=== PATIENT | female | born 1985 | race Caucasian/White ===

== ENCOUNTER 2017-06-14 02:23 | Emergency (ER) | payer BC, OTHER ==
[2017-06-14 02:38] VITALS: BMI 23.2
[2017-06-14 02:41] VITALS: BP 106/71; PULSE 106; RESP 18; TEMP 99; O2SAT 97
--- NOTE | 2017-06-14 02:55 | ED PDOC ---
Arrival/HPI - General Chief Complaint: Flu-like Symptoms Time Seen by Provider: 06/14/17 02:48 Historian: Patient - History of Present Illness Narrative History of Present Illness (Text): 06/14/17 02:53 Pt. to ED no significant PMHX with c/o flu like symptoms past 2 days. C/o dry cough, subjective fever, occasional chills. No vomiting or diarrhea.No chest pain or sob. Past Medical History - Provider Review Nursing Documentation Reviewed: Yes - Travel History Have you recently traveled outside [place] w/in the past 3 mons?: No - Psychiatric Hx Substance Use: No - Surgical History Other/Comment: laproscopy - Anesthesia Hx Anesthesia: No Family/Social History - Physician Review Nursing Documentation Reviewed: Yes Family/Social History: No Known Family HX Smoking Status: Never Smoked Hx Alcohol Use: No Hx Substance Use: No Allergies/Home Meds Allergies/Adverse Reactions: Allergies No Known Allergies Allergy (Verified 06/14/17 02:38) Review of Systems - Physician Review All systems were reviewed & negative as marked: Yes - Review of Systems Constitutional: Fevers, Other (Chills) Eyes: Normal ENT: Normal Respiratory: Cough Cardiovascular: Normal Gastrointestinal: Normal Genitourinary Female: Normal Musculoskeletal: Normal Skin: Normal Neurological: Normal Endocrine: Normal Hemo/Lymphatic: Normal Psychiatric: Normal Physical Exam Vital Signs Reviewed: Yes Vital Signs Temp Pulse Resp BP Pulse Ox 06/14/17 02:41 99.0 F 106 H 18 106/71 97 06/14/17 02:38 99.0 F 106 H 18 106/71 97 Temperature: Afebrile Blood Pressure: Normal Pulse: Regular Respiratory Rate: Normal Appearance: Positive for: Well-Appearing, Non-Toxic, Comfortable Pain Distress: None Mental Status: Positive for: Alert and Oriented X 3 - Systems Exam Head: Present: Atraumatic, Normocephalic Pupils: Present: PERRL Extroacular Muscles: Present: EOMI Conjunctiva: Present: Normal Mouth: Present: Moist Mucous Membranes Pharnyx: Present: Normal Nose (Internal): Present: Rhinorrhea Neck: Present: Normal Range of Motion. No: Meningeal Signs Respiratory/Chest: Present: Clear to Auscultation, Good Air Exchange. No: Respiratory Distress, Accessory Muscle Use Cardiovascular: Present: Regular Rate and Rhythm, Normal S1, S2. No: Murmurs Abdomen: Present: Normal Bowel Sounds. No: Tenderness, Distention, Peritoneal Signs Back: Present: Normal Inspection Upper Extremity: Present: Normal Inspection. No: Cyanosis, Edema Lower Extremity: Present: Normal Inspection, Tenderness. No: Edema Neurological: Present: GCS=15, CN II-XII Intact, Speech Normal, Normal Sensory Function Skin: Present: Warm, Dry, Normal Color. No: Rashes Psychiatric: Present: Alert, Oriented x 3, Normal Insight, Normal Concentration Medical Decision Making ED Course and Treatment: 06/14/17 03:02 Impression: 31 year old female presents complaining of flu-like symptoms that began 2 days ago. Patient complaining of dry cough, fever, occasional chills. Plan: -- Tylenol 325 mg tab -- Influenza A B -- HCG, Qualit Urine -- Reassess and disposition Progress Notes: - Lab Interpretations Lab Results: Lab Results 06/14/17 03:05: Urine HCG, Qual Negative 06/14/17 03:00: Influenza Typ A,B (EIA) Negative for flu a/b - Medication Orders Current Medication Orders: Discontinued Medications Acetaminophen (Tylenol 325mg Tab) 650 mg PO STAT STA Stop: 06/14/17 03:22 Last Admin: 06/14/17 03:26 Dose: 650 mg MAR Pain/Vitals Document 06/14/17 03:26 RD (Rec: 06/14/17 03:27 RD [facility]) Pain Reassessment Is This A Pain ReAssessment? No Sleep Is patient sleeping during reassessment? No Presence of Pain Presence of Pain Yes Disposition/Present on Arrival - Present on Arrival Any Indicators Present on Arrival: No History of DVT/PE: No History of Uncontrolled Diabetes: No Urinary Catheter: No History of Decub. Ulcer: No History Surgical Site Infection Following: None - Disposition Have Diagnosis and Disposition been Completed?: Yes Diagnosis: Flu-like symptoms, Bronchitis Disposition: HOME/ ROUTINE Disposition Time: 03:48 Patient Plan: Discharge Condition: GOOD Discharge Instructions (ExitCare): Acute Bronchitis (ED) Additional Instructions: Drink plenty of liquids/Tylenol for fever as directed/take meds as prescribed/ follow up with your doctor this week Prescriptions: Oseltamivir [Tamiflu] 75 mg PO BID #10 cap Azithromycin [Zithromax] 250 mg PO DAILY #4 tab Referrals: [facility], [Primary Care Provider] - Follow up with primary Forms: [employer] ([employer]), WORK NOTE
== END 2017-06-14 04:11 | disposition home or self-care (01) ==
LOC: ED 02:23
DX: J20.9 Acute bronchitis, unspecified (principal); J11.1 Influenza due to unidentified influenza virus with other respiratory manifestations